=== PATIENT | male | born 1990 | race Caucasian/White ===

== ENCOUNTER → 2021-05-07 | Outpatient (CLI) | payer OTHER ==
[~2021-05-07] MED LIST: APAP500 PO; ATIVAN1 M1 PO; DEXTROAMP-AMPHE10 MG PO; HYDROCODON-ACE1 EAC8 PO; IMURAN 50MG TAB50 M1 PO; OSCIMIN0.125 MG PO; PENTASA500 MG PO; REMICADE 1100 MG/VIA IV PUSH; ZOSYN 4.5 GRAM4.5 GM IV; [UNRECOGNIZED DRUG - OTHER] PO
== END ==
LOC: LAB 11:21
PROVIDERS: ATTEND Student in an Organized Health Care Education/Training Program
DX: Z01.812 Encounter for preprocedural laboratory examination (principal); Z20.822 Contact with and (suspected) exposure to COVID-19

== ENCOUNTER → 2021-05-09 | Outpatient (CLI) | payer OTHER ==
[~2021-05-09] VITALS: Ht 167.6 cm; Wt 65.8 kg
--- NOTE | 2021-05-09 14:36 | P ---
[facility] [place] [address] PROCEDURE REPORT Name: ANU MCKEON Room #: REG LEIGHSegundo Gaston#: [id number] Admission: 05/09/21 Attend Phys: Mj Frias Discharge: Date of : 89 Report #: [id number] THIS REPORT FOR: cc: Pedro Melendrez MD, John R. MD McElhinney, Christian C. MD ~ cc: Pedro Melendrez MD DATE OF SERVICE: 05/09/2021 PROCEDURE PERFORMED: Colonoscopy with biopsies. HISTORY OF PRESENT ILLNESS: The patient is a 30-year-old male with a history of Crohn's disease, status post small bowel resection on Remicade at this time every 8 weeks. He has been doing well. He does report some mild diarrhea around 1 to 2 weeks prior to his next dose of Remicade. Denies any blood in his stools. Last colonoscopy 5 years ago showing mild ileitis. DESCRIPTION OF PROCEDURE: The risks and benefits of the procedure were explained to the patient, those risks including but not limited to bleeding, perforation and the risk of sedation. He understood these risks and gave informed consent. Sedation was given using propofol per anesthesia. Next, a digital rectal exam was initially performed, which was normal. Next, using a standard Olympus colonoscope, the scope was placed in the patient's anus and advanced under direct vision to the right colon, at which point, the surgical anastomosis was noted. This was widely patent. The terminal ileum was intubated. A few small clean white based ulcers consistent with mild ileitis and Crohn's disease was noted. Biopsies were obtained. No evidence of bleeding. The scope was then brought back into the patient's colon. The remaining transverse, descending and sigmoid colon were normal. The rectal mucosa was normal. On retroflexion, no abnormalities were noted. The scope was then withdrawn and the procedure terminated. The patient tolerated the procedure well. IMPRESSION: 1. Mild ileitis with small ulcerations similar in appearance to 5 years ago. 2. Surgical anastomosis noted in the right colon. 3. Otherwise, normal colonoscopy. RECOMMENDATIONS: 1. Await biopsy results. 2. We discussed possibly decreasing frequency of Remicade to every 7 weeks. [facility] [address] [place] [address] PROCEDURE REPORT Name: MCKEONANU GINETTE Room #: REG [facility].#: [id number] Admission: 05/09/21 Attend Phys: Mj Frias Discharge: Date of : 89 Report #: [id number] Thank you for allowing me to participate in his care. <ELECTRONICALLY SIGNED> By: Mj Mendosa MD 05/09/21 1436 0925 1228 Mj Mendosa MD /nt
--- NOTE | 2021-05-11 14:07 | PATH ---
[facility] [address] [place] [address] PATHOLOGY RPT PROCEDURE Name: ANU MCKEON Room #: REG AUGIE Lockett.#: [id number] Admission: 05/09/21 Date of : 89 Discharge: Report #: [id number] Path Case #: [id number] [facility] Accession Number: [id number] . 01 Material submitted: . ileum - TERMINAL ILEUM BIOPSY. Modifiers: TERMINAL . 01 Clinical history: . CROHN'S DISEASE ILLEITIS DTS/COLONOSCOPY . 02 Diagnosis: Small bowel mucosa, terminal ileum, endoscopic biopsy: - Nonspecific reactive changes, history of Crohn's disease ileitis. - Negative for active ileitis / inflammation. - Negative for dysplasia or malignancy. . (IUV:mml; 05/11/2021) QLM 05/11/2021 1220 Local . 02 Electronically signed: . Alida King MD, Pathologist NPI- [id number] . 01 Gross description: . The specimen is received in formalin, labeled "Celestino, Anu, terminal ileum BX". Received are multiple segments of pale [place] tissue ranging in size from 0.2 cm to 0.4 cm in maximum dimensions. The specimen is submitted entirely in cassette A1.([facility]; 05/10/2021) [facility] 05/10/2021 1306 Local . 02 Pathologist provided ICD-10: K52.9, Z12.11 . 02 CPT . 930496 Specimen Comment: A courtesy copy of this report has been sent to [phone], [phone] Specimen Comment: [phone] Specimen Comment: Report sent to / DR RUFF Performed at: [address] [id number] MD Pacheco Vega MD Phone: [phone] Performed at: [address] [id number] [address] [address] PATHOLOGY RPT PROCEDURE Name: ANU MCKEON Room #: REG AUGIE Iglesias.Trisha.#: [id number] Admission: 05/09/21 Date of : 89 Discharge: Report #: [id number] Path Case #: [id number] MD Alida King MD Phone: [phone]
== END | disposition home or self-care (01) ==
LOC: GI 06:57
PROVIDERS: ATTEND Specialist
DX: K52.9 Noninfective gastroenteritis and colitis, unspecified (principal); Z98.0 Intestinal bypass and anastomosis status; F32.9 Major depressive disorder, single episode, unspecified; F41.9 Anxiety disorder, unspecified; J45.909 Unspecified asthma, uncomplicated; Z98.890 Other specified postprocedural states; Z79.899 Other long term (current) drug therapy; Z87.01 Personal history of pneumonia (recurrent); Z88.0 Allergy status to penicillin
CPT/HCPCS: 62110; 62900